=== PATIENT | male | born 1955 | race Caucasian/White ===

== ENCOUNTER → 2023-04-18 | Day surgery (SDC) | payer OTHER ==
[~2023-04-18] VITALS: Ht 162.6 cm; Wt 70.9 kg
[~2023-04-18] MED LIST: AMLO1TAB25 PO; ASPI81TA26 PO; ATOR40TA75 PO; BSS IRRIG/VANCO(10MG)/TOBRA(5MG)/EPINEPH(1:1000-0.5CC)500ML BAG-ORONLY IR ONE; CEFUROXIME 1MG/0.1ML INTRACAMERAL INJ As Ordered ONE; CHLO125TA PO; CYCLOPENTOLATE 1% OPHTH SOLN 2ML BTL OS SCH; LIDOCAINE 1% SDV 5ML VIAL As Ordered ONE; LIDOCAINE 3.5 % 1ML OPHTH TOPICAL GEL OU ONE; MIDAZOLAM INJ 2MG/2ML VIAL As Ordered ONE; OFLOXACIN 0.3 % (OCUFLOX) OPTH SOL 5ML OS ONE; PHENYLEPHRINE 10% OPHTH SOL 5ML OS PRN; PHENYLEPHRINE 2.5% OPHTH SOL 2ML OS SCH; POTA-164 PO; TIMO5DRO5 OU; TROPICAMIDE 1% OPHTH SOLN 15ML OS SCH; eye drop; fentaNYL 100 MCG/2 ML INJECTION As Ordered ONE
[2023-04-18 14:55] VITALS: BP 129/80; TEMP 97.9; O2SAT 96
== END | disposition home or self-care (01) ==
LOC: M SDC 12:32
PROVIDERS: ATTEND Ophthalmology
DX: H25.12 Age-related nuclear cataract, left eye (principal); H40.9 Unspecified glaucoma; I10 Essential (primary) hypertension; E78.00 Pure hypercholesterolemia, unspecified; Z79.899 Other long term (current) drug therapy; Z79.82 Long term (current) use of aspirin; F17.210 Nicotine dependence, cigarettes, uncomplicated
CPT/HCPCS: 66988; J0697; J2250; J3010; V2632

== ENCOUNTER 2023-06-13 11:04 | Day surgery (SDC) | payer OTHER ==
[~2023-06-13] VITALS: Ht 162.6 cm; Wt 71.2 kg
[~2023-06-13 11:04] MED LIST changes: -BSS IRRIG/VANCO(10MG)/TOBRA(5MG)/EPINEPH(1:1000-0.5CC)500ML BAG-ORONLY IR ONE; +CYCLOPENTOLATE 1% OPHTH SOLN 2ML BTL OD SCH; -CYCLOPENTOLATE 1% OPHTH SOLN 2ML BTL OS SCH; +OFLOXACIN 0.3 % (OCUFLOX) OPTH SOL 5ML OD ONE; -OFLOXACIN 0.3 % (OCUFLOX) OPTH SOL 5ML OS ONE; +PHENYLEPHRINE 10% OPHTH SOL 5ML OD PRN; -PHENYLEPHRINE 10% OPHTH SOL 5ML OS PRN; +PHENYLEPHRINE 2.5% OPHTH SOL 2ML OD SCH; -PHENYLEPHRINE 2.5% OPHTH SOL 2ML OS SCH; +TROPICAMIDE 1% OPHTH SOLN 15ML OD SCH; -TROPICAMIDE 1% OPHTH SOLN 15ML OS SCH; +XALA0.007; -fentaNYL 100 MCG/2 ML INJECTION As Ordered ONE
[2023-06-13] MEDS ORDERED: BSS IRRIG/VANCO(10MG)/TOBRA(5MG)/EPINEPH(1:1000-0.5CC)500ML BAG-ORONLY As Ordered ONE (11:59)
[2023-06-13 12:47] VITALS: BP 121/71; TEMP 98.2; O2SAT 98
== END 2023-06-13 13:02 | disposition home or self-care (01) ==
LOC: M SDC 11:04
PROVIDERS: ATTEND Ophthalmology
DX: H25.11 Age-related nuclear cataract, right eye (principal); I10 Essential (primary) hypertension; E78.5 Hyperlipidemia, unspecified; L40.9 Psoriasis, unspecified; Z79.82 Long term (current) use of aspirin; Z79.899 Other long term (current) drug therapy; F17.218 Nicotine dependence, cigarettes, with other nicotine-induced disorders
CPT/HCPCS: 66984; J0697; J2250; V2632